=== PATIENT | female | born 1990 | race Caucasian/White ===

== ENCOUNTER 2020-03-22 11:30 | Emergency (ER) | payer OTHER ==
[~2020-03-22] VITALS: Ht 167.6 cm; Wt 85.9 kg
[2020-03-22 11:45] VITALS: BP 120/75; Ht 167.6 cm; Wt 85.9 kg
[2020-03-22] MEDS ORDERED: DICLOFENAC SODI50 MG PO (11:52)
== END 2020-03-22 11:54 | disposition home or self-care (01) ==
LOC: D.ER 11:30
DX: K08.89 Other specified disorders of teeth and supporting structures (principal); K02.9 Dental caries, unspecified; S02.5XXA Fracture of tooth (traumatic), initial encounter for closed fracture